=== PATIENT | male | born 1985 | race Hispanic/Latino ===

== ENCOUNTER 2017-04-11 15:39 | Emergency (ER) | payer SELFPAY ==
[2017-04-11 15:52] VITALS: BMI 24.4
[2017-04-11 16:03] VITALS: TEMP 98.7
--- NOTE | 2017-04-11 16:37 | ED PDOC ---
Arrival/HPI - General Historian: Patient - General Chief Complaint: Psychiatric Evaluation Time Seen by Provider: 04/11/17 15:43 - History of Present Illness Narrative History of Present Illness (Text): 04/11/17 16:33 31yo male with history of Bipolar bib the [facility] for psych evaluation. Per BPD, patient tried to hang himself in correction today. Patient admitted to it, states he was joking with the guards. Reports visual hallucination, described as "things crawling on a wall". Notes that he used heroine this morning. States he takes psych medications that he gets from the street. Denies HI, somatic complaint, any other complaint. (Joel,Amparo A) Past Medical History - Provider Review Nursing Documentation Reviewed: Yes - Infectious Disease Hx of Infectious Diseases: None - Tetanus Immunization Tetanus Immunization: Unknown - Past Medical History Past Medical History: No Previous - Cardiac Hx Cardiac Disorders: No Hx Hypertension: No - Pulmonary Hx Tuberculosis: No - Neurological HX Cerebrovascular Accident: No Hx Seizures: No - HEENT Hx HEENT Disorder: No - Renal Hx Renal Disorder: No - Endocrine/Metabolic Hx Endocrine Disorders: No - Hematological/Oncological Hx Blood Disorders: No Hx Cancer: No - Integumentary Hx Dermatological Disorder: No - Musculoskeletal/Rheumatological Hx Musculoskeletal Disorders: No - Gastrointestinal Hx Gastrointestinal Disorders: No - Genitourinary/Gynecological Hx Genitourinary Disorders: No Hx Sexually Transmitted Diseases: No - Psychiatric Hx Psychophysiologic Disorder: Yes Hx Bipolar Disorder: Yes Hx Depression: Yes Hx Emotional Abuse: No Hx Physical Abuse: No Hx Substance Use: Yes - Past Surgical History Past Surgical History: No Previous - Suicidal Assessment Feels Threatened In Home Enviroment: No Family/Social History - Physician Review Nursing Documentation Reviewed: Yes Family/Social History: Unknown Family HX Smoking Status: Heavy Smoker > 10 Cigarettes Daily Hx Alcohol Use: Yes Frequency of alcohol use: Daily Hx Substance Use: Yes Substance used: marijuana, percocet, xanax, heroin Hx Substance Use Treatment: No Allergies/Home Meds Allergies/Adverse Reactions: Allergies No Known Allergies Allergy (Verified 04/11/17 15:52) Home Medications: Home Meds Medication Instructions Recorded Confirmed QUEtiapine [SEROquel] 50 mg PO .AM 04/11/17 04/11/17 Quetiapine Fumarate [Seroquel] 300 mg PO HS 04/11/17 04/11/17 hydrOXYzine Pamoate [Vistaril] 50 mg PO PRN PRN 04/11/17 04/11/17 traZODone [Desyrel] 50 mg PO .AM 04/11/17 04/11/17 traZODone [Desyrel] 150 mg PO HS 04/11/17 04/11/17 Review of Systems - Physician Review All systems were reviewed & negative as marked: Yes - Review of Systems Constitutional: Normal Eyes: Normal ENT: Normal Respiratory: Normal Cardiovascular: Normal Gastrointestinal: Normal Genitourinary Male: Normal Musculoskeletal: Normal Skin: Normal Neurological: Normal Endocrine: Normal Hemo/Lymphatic: Normal Psychiatric: Suicidal Ideation Physical Exam Vital Signs Reviewed: Yes Temperature: Afebrile Blood Pressure: Normal Pulse: Regular Respiratory Rate: Normal Appearance: Positive for: Well-Appearing, Non-Toxic, Comfortable Pain Distress: None Mental Status: Positive for: Alert and Oriented X 3 - Systems Exam Head: Present: Atraumatic, Normocephalic Pupils: Present: PERRL Extroacular Muscles: Present: EOMI Conjunctiva: Present: Normal Mouth: Present: Moist Mucous Membranes Neck: Present: Normal Range of Motion Respiratory/Chest: Present: Clear to Auscultation, Good Air Exchange. No: Respiratory Distress, Accessory Muscle Use Cardiovascular: Present: Regular Rate and Rhythm, Normal S1, S2. No: Murmurs Abdomen: Present: Normal Bowel Sounds. No: Tenderness, Distention, Peritoneal Signs Back: Present: Normal Inspection Upper Extremity: Present: Normal Inspection. No: Cyanosis, Edema Lower Extremity: Present: Normal Inspection. No: Edema Neurological: Present: GCS=15, CN II-XII Intact, Speech Normal Skin: Present: Warm, Dry, Normal Color. No: Rashes Psychiatric: Present: Alert, Oriented x 3, Normal Insight, Normal Concentration. No: Normal Affect (Flat affect) Vital Signs Temp Pulse Resp BP Pulse Ox 04/11/17 23:41 77 18 116/72 99 04/11/17 21:40 70 18 113/60 96 04/11/17 19:18 74 18 119/67 98 04/11/17 15:39 98.7 F 82 12 125/70 98 Medical Decision Making ED Course and Treatment: 04/11/17 22:49 Pt medically cleared for psychiatric evaluation. (Kimberly,Guevara) - Lab Interpretations Lab Results: 04/11/17 22:00 04/11/17 22:00 Lab Results 04/11/17 22:00: Alcohol, Quantitative < 10 04/11/17 22:00: Salicylates < 1 L, Acetaminophen < 10.0 L 04/11/17 22:00: Sodium 139, Potassium 4.1, Chloride 105, Carbon Dioxide 23, Anion Gap 15, BUN 8, Creatinine 0.6, Est GFR ( Amer) > 60, Est GFR (Non- Af Amer) > 60, Random Glucose 92, Calcium 9.5, Total Bilirubin 0.5, AST 50, ALT 59 H, Alkaline Phosphatase 73, Total Protein 7.5, Albumin 3.9, Globulin 3.7, Albumin/Globulin Ratio 1.1 04/11/17 22:00: WBC 6.4, RBC 4.59, Hgb 12.8 L, Hct 38.8 L, MCV 84.5, MCH 27.9, MCHC 33.0, RDW 15.8 H, Plt Count 237, MPV 10.3, Gran % 73.5 H, Lymph % (Auto) 19.6 L, [place] % (Auto) 5.0, Eos % (Auto) 1.6, Baso % (Auto) 0.3, Gran # 4.68, Lymph # 1.3, [place] # 0.3, Eos # 0.1, Baso # 0.02 04/11/17 17:25: Urine Opiates Screen Positive H, Urine Methadone Screen Negative , Ur Barbiturates Screen Negative, Ur Phencyclidine Scrn Negative, Ur Amphetamines Screen Negative, U Benzodiazepines Scrn Positive H, U Oth Cocaine Metabols Negative, U Cannabinoids Screen Positive H 04/11/17 17:25: Urine Color Yellow, Urine Appearance Clear, Urine pH 7.0, Ur Specific [place] 1.015, Urine Protein Negative, Urine Glucose (UA) Negative, Urine Ketones Negative, Urine Blood Negative, Urine Nitrate Negative, Urine Bilirubin Negative, Urine Urobilinogen 0.2, Ur Leukocyte Esterase Negative - RAD Interpretation Radiology Orders: 04/11/17 15:56 CHEST PORTABLE [RAD] Stat Disposition/Present on Arrival - Present on Arrival Any Indicators Present on Arrival: No History of DVT/PE: No History of Uncontrolled Diabetes: No Urinary Catheter: No History of Decub. Ulcer: No History Surgical Site Infection Following: None - Disposition Have Diagnosis and Disposition been Completed?: Yes Disposition Time: 08:00 Patient Plan: Discharge - Disposition Diagnosis: Substance induced mood disorder, Suicidal behavior Disposition: HOME/ ROUTINE Condition: STABLE Referrals: PCP,NO [Primary Care Provider] - Follow up with primary
[2017-04-11 17:36] LABS: URINE BILIRUBIN NEGATIVE (NEGATIVE); URINE BLOOD NEGATIVE (NEGATIVE); URINE GLUCOSE (UA) NEGATIVE (NEGATIVE); URINE KETONE NEGATIVE (NEGATIVE); URINE LEUKOCYTE ESTERASE NEGATIVE Leu/uL (NEGATIVE); URINE PROTEIN NEGATIVE mg/dL (<30 mg/dL); URINE UROBILINOGEN 0.2 E.U./dL (<1 E.U./dL)
[2017-04-11 17:41] LABS: URINE APPEARANCE CLEAR (CLEAR); URINE COLOR YELLOW (YELLOW)
--- NOTE | 2017-04-11 17:50 | RAD ---
HISTORY: admission COMPARISON: Chest x-ray performed 04/23/14 TECHNIQUE: Chest, one view. FINDINGS: LUNGS: No focal consolidation. Please note that chest x-ray has limited sensitivity for the detection of pulmonary masses. PLEURA: No significant pleural effusion identified. No definite pneumothorax . CARDIOVASCULAR: The cardiomediastinal silhouette appears within normal limits of size. OSSEOUS STRUCTURES: No acute osseous abnormality identified. VISUALIZED UPPER ABDOMEN: Unremarkable. OTHER FINDINGS: None. IMPRESSION: No focal consolidation, significant pleural effusion, or definite pneumothorax identified.
[2017-04-11 19:18] VITALS: RESP 18
[2017-04-11 22:02] LABS: ADD MANUAL DIFF? NO
[2017-04-11 22:07] LABS: BASO # 0.02 K/mm3 (0.0-2.0); BASO % 0.3 % (0.0-3.0); EOS # 0.1 (0.0-0.7); EOS % 1.6 % (1.5-5.0); GRAN # 4.68 (1.4-6.5); GRAN % 73.5 % (50.0-68.0); HEMATOCRIT 38.8 % (42.0-52.0); LYMPH # 1.3 (1.2-3.4); LYMPH % 19.6 % (22.0-35.0); MEAN CELL VOLUME 84.5 fL (80.0-105.0); MEAN CORPUSCULAR HEMOGLOBIN 27.9 pg (25.0-35.0); MEAN PLATELET VOLUME 10.3 fl (7.0-11.0); MONO # 0.3 (0.1-0.6); PLATELET COUNT 237 10^3/uL (120.0-450.0); RED CELL DISTRIBUTION WIDTH 15.8 % (11.5-14.5); WHITE BLOOD COUNT 6.4 10^3/ul (4.5-11.0)
[2017-04-11 22:17] LABS: ALB/GLOB RATIO 1.1 (1.1-1.8); ALKALINE PHOSPHATASE 73 U/L (38-133); ALT/SGPT 59 U/L (7-56); AST/SGOT 50 U/L (15-59); BILIRUBIN,TOTAL 0.5 mg/dL (0.2-1.3); BLOOD UREA NITROGEN 8 mg/dL (7-21); CALCIUM 9.5 mg/dL (8.4-10.5); CARBON DIOXIDE 23 mmol/L (21-33); CHLORIDE 105 mmol/L (95-110); GFR AFRICAN-AMERICAN > 60; GLUCOSE,RANDOM 92 mg/dL (70-110); POTASSIUM 4.1 mmol/L (3.6-5.0); SODIUM 139 mmol/L (132-148); TOTAL PROTEIN 7.5 g/dL (5.8-8.3)
--- NOTE | 2017-04-11 22:17 | CARD ---
APPROVED REPORT EKG Measurement Heart [id number] <Conclusion> Normal sinus rhythm Normal ECG
[2017-04-11 23:41] VITALS: BP 116/72; PULSE 77; O2SAT 99
== END 2017-04-12 22:45 | disposition home or self-care (01) ==
LOC: ED 15:39
DX: F19.94 Other psychoactive substance use, unspecified with psychoactive substance-induced mood disorder (principal); R45.851 Suicidal ideations
CPT/HCPCS: 71010; 80053; 81003; 85025; 90791; 93005; 99284; G0480

== ENCOUNTER 2017-10-17 23:17 | Emergency (ER) | payer MEDICAID ==
[2017-10-17 23:17] VITALS: BMI 24.4
[2017-10-17 23:28] VITALS: BP 119/67; PULSE 76; RESP 24; TEMP 98.6; O2SAT 97
--- NOTE | 2017-10-17 23:34 | ED PDOC ---
Arrival/HPI <Rukhsana Arteaga - Last Filed: 10/18/17 01:35> <Karan Verdugo - Last Filed: 10/18/17 04:59> - General Chief Complaint: Substance Abuse - History of Present Illness Narrative History of Present Illness (Text): 31 year old male with PMHx BiPolar disorder, and substance abuse presents to the ED status post syncopal episode with fall. Mother was at bedside. Patient stated he got dizzy and then fell, he does not remember if he hit his head. Per mother, patient did hit his head. He stated that he did a 30mg Oxycode along with his prescribed methadone. Interview was halted because patient stated that he wished to go home. 10/17/17 23:34 (Rukhsana Arteaga) Past Medical History - Provider Review Nursing Documentation Reviewed: Yes - Infectious Disease Hx of Infectious Diseases: None - Tetanus Immunization Tetanus Immunization: Unknown - Past Medical History Past Medical History: No Previous - Cardiac Hx Cardiac Disorders: No Hx Hypertension: No - Pulmonary Hx Tuberculosis: No - Neurological HX Cerebrovascular Accident: No Hx Seizures: No - HEENT Hx HEENT Disorder: No - Renal Hx Renal Disorder: No - Endocrine/Metabolic Hx Endocrine Disorders: No - Hematological/Oncological Hx Blood Disorders: No Hx Cancer: No - Integumentary Hx Dermatological Disorder: No - Musculoskeletal/Rheumatological Hx Musculoskeletal Disorders: No - Gastrointestinal Hx Gastrointestinal Disorders: No - Genitourinary/Gynecological Hx Genitourinary Disorders: No Hx Sexually Transmitted Diseases: No - Psychiatric Hx Psychophysiologic Disorder: Yes Hx Bipolar Disorder: Yes Hx Depression: Yes Hx Emotional Abuse: No Hx Physical Abuse: No Hx Substance Use: Yes - Past Surgical History Past Surgical History: No Previous - Anesthesia Hx Anesthesia: No Hx Anesthesia Reactions: No Hx Malignant Hyperthermia: No - Suicidal Assessment Feels Threatened In Home Enviroment: No <Rukhsana Arteaga - Last Filed: 10/18/17 01:35> Family/Social History - Physician Review Nursing Documentation Reviewed: Yes Family/Social History: Unknown Family HX Smoking Status: Heavy Smoker > 10 Cigarettes Daily Hx Alcohol Use: Yes Hx Substance Use: Yes Substance used: marijuana, percocet, xanax, heroin Hx Substance Use Treatment: No <Rukhsana Arteaga - Last Filed: 10/18/17 01:35> Allergies/Home Meds <Rukhsana Arteaga - Last Filed: 10/18/17 01:35> <Karan Verdugo - Last Filed: 10/18/17 04:59> Allergies/Adverse Reactions: Allergies No Known Allergies Allergy (Verified 04/11/17 15:52) Home Medications: Home Meds Medication Instructions Recorded Confirmed QUEtiapine [SEROquel] 50 mg PO .AM 04/11/17 10/17/17 Quetiapine Fumarate [Seroquel] 300 mg PO HS 04/11/17 10/17/17 hydrOXYzine Pamoate [Vistaril] 50 mg PO PRN PRN 04/11/17 10/17/17 traZODone [Desyrel] 50 mg PO .AM 04/11/17 10/17/17 traZODone [Desyrel] 150 mg PO HS 04/11/17 10/17/17 Review of Systems - Review of Systems Systems not reviewed;Unavailable: Other (N/A. Patient stopped interview before ROS and stated that he would like to go home.) <Rukhsana Arteaga - Last Filed: 10/18/17 01:35> Physical Exam Vital Signs Reviewed: Yes <Rukhsana Arteaga - Last Filed: 10/18/17 01:35> <Karan Verdugo - Last Filed: 10/18/17 04:59> - Physical Exam Narrative Physical Exam (Text): N/A. Patient refused physical exam and stated he would like to go home. 10/17/17 23:52 (Rukhsana Arteaga) Vital Signs Temp Pulse Resp BP Pulse Ox 10/17/17 23:27 98.6 F 76 24 119/67 97 Medical Decision Making <Rukhsana Arteaga - Last Filed: 10/18/17 01:35> <Karan Verdugo - Last Filed: 10/18/17 04:59> ED Course and Treatment: Syncopal episode likely 2/2 to drug intoxication This patient is choosing to leave against medical advice. I have personally explained to the patient that choosing to do so may result in permanent bodily harm or . I have discussed at great length that without further evaluation and monitoring there may be unforeseen circumstances and/or deterioration causing permanent bodily harm or as a result of their choice. The patient is alert, oriented, and shows the mental capacity to make clear decisions regarding the patients health care at this time. The patient continues to wish to leave against medical advice. In light of the patients decision to leave AMA, patient is aware of the importance of following up as instructed. The patient has been advised that they should return to the ED immediately if they change their mind at any time, or if their condition begins to change or worsen in any way. 10/17/17 23:53 (Rukhsana Arteaga) Impression: Pt seen and evaluated with medical staff services manager. Pt, whose past medical history includes bipolar disorder and substance abuse, presented s/p syncope tonight. Pt admits to taking Oxycodone 30mg with his Methadone tonight. Aware and agree with HPI, clinical findings, plan, and management. Plan: -- Reassess and disposition Pt refused a physical exam, lab work, or any further evaluation. Pt refused any further questioning. Pt wants to go home. Pt is choosing to leave against medical advice. (Karan Verdugo) - PA / TOOL DESIGN ENGINEER / Resident Statement / has reviewed & agrees with the documentation as recorded. / has examined the patient and agrees with the treatment plan. <Karan Verdugo - Last Filed: 10/18/17 04:59> Disposition/Present on Arrival - Present on Arrival Any Indicators Present on Arrival: No History of DVT/PE: No History of Uncontrolled Diabetes: No Urinary Catheter: No History of Decub. Ulcer: No History Surgical Site Infection Following: None - Disposition Have Diagnosis and Disposition been Completed?: No Disposition Time: 23:54 <Rukhsana Arteaga - Last Filed: 10/18/17 01:35> - Present on Arrival Any Indicators Present on Arrival: No - Disposition Have Diagnosis and Disposition been Completed?: Yes <Karan Verdugo - Last Filed: 10/18/17 04:59> - Disposition Diagnosis: Substance abuse Disposition: AGAINST MEDICAL ADVICE Condition: UNKNOWN Forms: [employer] (Indonesian)
== END 2017-10-18 01:36 | disposition left against medical advice (07) ==
LOC: ED 23:17
DX: F19.10 Other psychoactive substance abuse, uncomplicated (principal)

== ENCOUNTER 2018-03-24 18:17 | Emergency (ER) | payer MEDICAID ==
[2018-03-24 18:18] VITALS: BMI 24.4
[2018-03-24 18:30] VITALS: BP 137/85; PULSE 95; RESP 18; TEMP 98; O2SAT 99
--- NOTE | 2018-03-24 18:43 | ED PDOC ---
Arrival/HPI - General Chief Complaint: Anxiety Time Seen by Provider: 03/24/18 18:29 Historian: Patient - History of Present Illness Narrative History of Present Illness (Text): 03/24/18 18:46 32 year old male presents to the Emergency department complaining of palpitations and dizziness that began just prior to being registered. Patient is accompanying his brother who is a patient in the Emergency department at this time. Patient states his current symptoms are likely secondary from anxiety regarding his brother's case. Patient states his symptoms are improving. Patient denies any fever, chills, chest pain, shortness of breath, nausea, vomiting, diarrhea, urinary symptoms, back pain, neck pain, headache, or any other complaints. Time/Duration: Prior to Arrival Symptom Onset: Sudden Symptom Course: Improving Context: Standing Past Medical History - Provider Review Nursing Documentation Reviewed: Yes - Infectious Disease Hx of Infectious Diseases: None - Tetanus Immunization Tetanus Immunization: Unknown - Past Medical History Past Medical History: No Previous - Cardiac Hx Cardiac Disorders: No Hx Hypertension: No - Pulmonary Hx Respiratory Disorders: No Hx Tuberculosis: No - Neurological HX Cerebrovascular Accident: No Hx Seizures: No - HEENT Hx HEENT Disorder: No - Renal Hx Renal Disorder: No - Endocrine/Metabolic Hx Endocrine Disorders: No - Hematological/Oncological Hx Blood Disorders: No Hx Cancer: No - Integumentary Hx Dermatological Disorder: No - Musculoskeletal/Rheumatological Hx Musculoskeletal Disorders: No - Gastrointestinal Hx Gastrointestinal Disorders: No - Genitourinary/Gynecological Hx Genitourinary Disorders: No Hx Sexually Transmitted Diseases: No - Psychiatric Hx Psychophysiologic Disorder: Yes Hx Bipolar Disorder: Yes Hx Depression: Yes Hx Emotional Abuse: No Hx Physical Abuse: No Hx Substance Use: Yes - Past Surgical History Past Surgical History: No Previous - Anesthesia Hx Anesthesia: No Hx Anesthesia Reactions: No Hx Malignant Hyperthermia: No - Suicidal Assessment Feels Threatened In Home Enviroment: No Family/Social History - Physician Review Nursing Documentation Reviewed: Yes Family/Social History: Unknown Family HX Smoking Status: Heavy Smoker > 10 Cigarettes Daily Hx Alcohol Use: Yes Hx Substance Use: Yes Substance used: marijuana, percocet, xanax, heroin Hx Substance Use Treatment: No Allergies/Home Meds Allergies/Adverse Reactions: Allergies No Known Allergies Allergy (Verified 04/11/17 15:52) Home Medications: Home Meds Medication Instructions Recorded Confirmed ALPRAZolam [Xanax] 1 mg PO BID 03/24/18 03/24/18 Doxepin [Doxepin HCl] 25 mg PO HS 03/24/18 03/24/18 Review of Systems - Physician Review All systems were reviewed & negative as marked: Yes - Review of Systems Constitutional: absent: Fevers, Night Sweats Respiratory: absent: SOB Cardiovascular: Palpitations. absent: Chest Pain Gastrointestinal: absent: Nausea, Vomiting Genitourinary Male: absent: Dysuria Musculoskeletal: absent: Back Pain, Neck Pain Neurological: Dizziness. absent: Headache Physical Exam Vital Signs Reviewed: Yes Vital Signs Temp Pulse Resp BP Pulse Ox 03/24/18 18:18 98 F 95 H 18 137/85 99 Temperature: Afebrile Blood Pressure: Normal Pulse: Tachycardic Respiratory Rate: Normal Appearance: Positive for: Well-Appearing, Non-Toxic, Comfortable Pain Distress: None Mental Status: Positive for: Alert and Oriented X 3 - Systems Exam Head: Present: Atraumatic, Normocephalic Pupils: Present: PERRL Extroacular Muscles: Present: EOMI Conjunctiva: Present: Normal Mouth: Present: Moist Mucous Membranes Neck: Present: Normal Range of Motion Respiratory/Chest: Present: Clear to Auscultation, Good Air Exchange. No: Respiratory Distress, Accessory Muscle Use Cardiovascular: Present: Regular Rate and Rhythm, Normal S1, S2. No: Murmurs Abdomen: No: Tenderness, Distention, Peritoneal Signs Back: Present: Normal Inspection Upper Extremity: Present: Normal Inspection. No: Cyanosis, Edema Lower Extremity: Present: Normal Inspection. No: Edema Neurological: Present: GCS=15, CN II-XII Intact, Speech Normal Skin: Present: Warm, Dry, Normal Color. No: Rashes Psychiatric: Present: Alert, Oriented x 3, Normal Insight, Normal Concentration Medical Decision Making ED Course and Treatment: 03/24/18 18:50 Impression: 32 year old male presents to the Emergency department complaining of palpitations and dizziness, secondary to anxiety. Plan: -- EKG -- Reassess and disposition Progress Notes: 03/24/18 18:50 Patient was relieved to find out that his EKG was normal. Patient reports his symptoms are almost entirely resolved. 03/24/18 18:52 Leaving Against Medical Advice (AMA): The patient is choosing to leave against medical advice. I have personally explained to the patient that choosing to do so may result in permanent bodily harm or . I have discussed at great length that without further evaluation and monitoring there may be unforeseen circumstances and/or deterioration causing permanent bodily harm or as a result of their choice. The patient is alert, oriented, and shows the mental capacity to make clear decisions regarding the patients health care at this time. The patient continues to wish to leave against medical advice. In light of the patients decision to leave against medical advice, follow-up has been arranged and the patient is aware of the importance to following up as instructed. The patient has been advised that they should return to the emergency room immediately if they change their mind at any time, or if their condition begins to change or worsen in any way. - Scribe Statement The provider has reviewed the documentation as recorded by the Lily Chan Provider Scribe Attestation: All medical record entries made by the Scribe were at my direction and personally dictated by me. I have reviewed the chart and agree that the record accurately reflects my personal performance of the history, physical exam, medical decision making, and the department course for this patient. I have also personally directed, reviewed, and agree with the discharge instructions and disposition. Disposition/Present on Arrival - Present on Arrival Any Indicators Present on Arrival: No History of DVT/PE: No History of Uncontrolled Diabetes: No Urinary Catheter: No History of Decub. Ulcer: No History Surgical Site Infection Following: None - Disposition Have Diagnosis and Disposition been Completed?: Yes Diagnosis: Anxiety, Chest pain Disposition: AGAINST MEDICAL ADVICE Disposition Time: 18:43 Patient Plan: Other (AMA) Condition: GOOD Discharge Instructions (ExitCare): Chest Pain (ED) Additional Instructions: RETURN TO US IF YOU CHANGE YOUR MIND Referrals: BrandBeausherman Santana, [Primary Care Provider] - Follow up with primary Forms: [employer] (Polish)
== END 2018-03-24 18:50 | disposition left against medical advice (07) ==
LOC: ED 18:17
DX: F41.9 Anxiety disorder, unspecified (principal); R07.9 Chest pain, unspecified; F17.210 Nicotine dependence, cigarettes, uncomplicated

== ENCOUNTER 2018-03-30 18:16 | Emergency (ER) | payer MEDICAID ==
[2018-03-30 18:17] VITALS: BMI 24.4
[2018-03-30 18:25] VITALS: BP 113/68; RESP 18; TEMP 98
[2018-03-30 18:26] VITALS: PULSE 90; O2SAT 95
--- NOTE | 2018-03-30 18:52 | ED PDOC ---
Arrival/HPI - General Chief Complaint: Anxiety Time Seen by Provider: 03/30/18 18:33 Historian: Patient - History of Present Illness Narrative History of Present Illness (Text): 03/30/18 18:49 31 year old male with PMHx BiPolar disorder, and substance abuse presents to the ED c/o anxiety x [facility]IST[facility] Past Medical History - Infectious Disease Hx of Infectious Diseases: None - Tetanus Immunization Tetanus Immunization: Unknown - Past Medical History Past Medical History: No Previous - Cardiac Hx Cardiac Disorders: No - Pulmonary Hx Respiratory Disorders: No - Neurological Hx Neurological Disorder: No - HEENT Hx HEENT Disorder: No - Renal Hx Renal Disorder: No - Endocrine/Metabolic Hx Endocrine Disorders: No - Hematological/Oncological Hx Blood Disorders: No - Integumentary Hx Dermatological Disorder: No - Musculoskeletal/Rheumatological Hx Musculoskeletal Disorders: No - Gastrointestinal Hx Gastrointestinal Disorders: No - Genitourinary/Gynecological Hx Genitourinary Disorders: No - Psychiatric Hx Psychophysiologic Disorder: Yes Hx Bipolar Disorder: Yes Hx Depression: Yes Hx Substance Use: Yes - Past Surgical History Past Surgical History: No Previous - Anesthesia Hx Anesthesia: No Hx Anesthesia Reactions: No Hx Malignant Hyperthermia: No - Suicidal Assessment Feels Threatened In Home Enviroment: No Family/Social History Smoking Status: Heavy Smoker > 10 Cigarettes Daily Hx Alcohol Use: Yes Hx Substance Use: Yes Substance used: marijuana, percocet, xanax, heroin Hx Substance Use Treatment: No Allergies/Home Meds Allergies/Adverse Reactions: Allergies No Known Allergies Allergy (Verified 03/30/18 18:25) Home Medications: Home Meds Medication Instructions Recorded Confirmed No Known Home Med 03/30/18 03/30/18 Physical Exam Vital Signs Temp Pulse Resp BP Pulse Ox 03/30/18 18:25 98 F 90 18 113/68 95 03/30/18 18:20 98 F 102 H 18 113/68 97 Medical Decision Making ED Course and Treatment: 03/30/18 18:50 Discharge Instructions: Re-evaluation. Patient feels better. Discussed results and plan with patient who expresses understanding. All questions answered and there is agreement with the plan to discharge home with instructions. Patient stable for discharge. Return if symptoms persist or worsen. Patient stated he feels better. He denies SI, or HI. Denies illegal drug use or alcohol use today. Re-evaluation Time: 18:50 Reassessment Condition: Re-examined, Improved Disposition/Present on Arrival - Present on Arrival Any Indicators Present on Arrival: No History of DVT/PE: No History of Uncontrolled Diabetes: No Urinary Catheter: No History of Decub. Ulcer: No History Surgical Site Infection Following: None - Disposition Have Diagnosis and Disposition been Completed?: Yes Diagnosis: Anxiety Disposition: HOME/ ROUTINE Disposition Time: 18:50 Patient Plan: Discharge Condition: GOOD Discharge Instructions (ExitCare): Anxiety, Adult (DC) Additional Instructions: Call private doctor for follow up visit in 1-2 days. Call mental health clinic for revaluation of anxiety. Return to emergency if symptoms worsen. Referrals: [facility] [Outside] - Follow up with primary [facility] [[facility]] - Follow up with primary
== END 2018-03-30 19:11 | disposition home or self-care (01) ==
LOC: ED 18:16
DX: F41.9 Anxiety disorder, unspecified (principal)

== ENCOUNTER 2018-04-01 20:17 | Emergency (ER) | payer MEDICAID ==
[2018-04-01 20:44] VITALS: BP 129/77; PULSE 90; RESP 18; TEMP 98.6; O2SAT 97; BMI 25.7
--- NOTE | 2018-04-01 21:29 | ED PDOC ---
Arrival/HPI - General Chief Complaint: Medical Clearance Time Seen by Provider: 04/01/18 20:25 Historian: Patient - History of Present Illness Narrative History of Present Illness (Text): 04/01/18 21:24 Patient is a 32 year old male whose past medical history includes bipolar disorder, substance abuse, and anxiety, who presents to the Emergency department complaining of a syncopal episode, which occurred tonight while waiting in the Emergency department with his brother. He states experiencing a previous episode the day prior. He states that he hit his head tonight secondary to his syncopal event. Patient denies any drug use other than his prescribed medication. He denies any nausea, vomiting, neck pain, cp, sob, or any other complaints at this time. Time/Duration: Other (While waiting in Emergency department) Context: Sitting Past Medical History - Provider Review Nursing Documentation Reviewed: Yes - Infectious Disease Hx of Infectious Diseases: None - Tetanus Immunization Tetanus Immunization: Unknown - Past Medical History Past Medical History: No Previous - Cardiac Hx Cardiac Disorders: No - Pulmonary Hx Respiratory Disorders: No - Neurological Hx Neurological Disorder: No - HEENT Hx HEENT Disorder: No - Renal Hx Renal Disorder: No - Endocrine/Metabolic Hx Endocrine Disorders: No - Hematological/Oncological Hx Blood Disorders: No - Integumentary Hx Dermatological Disorder: No - Musculoskeletal/Rheumatological Hx Musculoskeletal Disorders: No - Gastrointestinal Hx Gastrointestinal Disorders: No - Genitourinary/Gynecological Hx Genitourinary Disorders: No - Psychiatric Hx Psychophysiologic Disorder: Yes Hx Bipolar Disorder: Yes Hx Depression: Yes Hx Substance Use: Yes - Past Surgical History Past Surgical History: No Previous - Anesthesia Hx Anesthesia: No Hx Anesthesia Reactions: No Hx Malignant Hyperthermia: No - Suicidal Assessment Feels Threatened In Home Enviroment: No Family/Social History - Physician Review Nursing Documentation Reviewed: Yes Family/Social History: No Known Family HX Smoking Status: Heavy Smoker > 10 Cigarettes Daily Hx Alcohol Use: Yes Hx Substance Use: Yes Substance used: marijuana, percocet, xanax, heroin Hx Substance Use Treatment: No Allergies/Home Meds Allergies/Adverse Reactions: Allergies No Known Allergies Allergy (Verified 04/01/18 20:41) Home Medications: Home Meds Medication Instructions Recorded Confirmed Alprazolam [Xanax] 2 mg PO DAILY 04/01/18 04/01/18 Review of Systems - Physician Review All systems were reviewed & negative as marked: Yes - Review of Systems Respiratory: absent: SOB Cardiovascular: absent: Chest Pain Gastrointestinal: absent: Nausea, Vomiting Musculoskeletal: absent: Neck Pain Physical Exam Vital Signs Reviewed: Yes Vital Signs Temp Pulse Resp BP Pulse Ox 04/01/18 20:40 98.6 F 90 18 129/77 97 Temperature: Afebrile Blood Pressure: Normal Pulse: Regular Respiratory Rate: Normal Appearance: Positive for: Well-Appearing Mental Status: Positive for: Alert and Oriented X 3 - Systems Exam Head: Present: Atraumatic, Normocephalic Pupils: Present: PERRL Extroacular Muscles: Present: EOMI Conjunctiva: Present: Normal Ears: Present: NORMAL TM Mouth: Present: Moist Mucous Membranes Neck: Present: Normal Range of Motion, Other (Neck is supple) Respiratory/Chest: Present: Clear to Auscultation, Good Air Exchange. No: Respiratory Distress, Accessory Muscle Use Cardiovascular: Present: Regular Rate and Rhythm, Normal S1, S2. No: Murmurs Abdomen: No: Tenderness, Distention, Peritoneal Signs Back: Present: Normal Inspection. No: CVA Tenderness, Paraspinal Tenderness Upper Extremity: Present: Normal Inspection. No: Cyanosis, Edema Lower Extremity: Present: Normal Inspection. No: Edema Neurological: Present: GCS=15, CN II-XII Intact, Speech Normal, Motor Func Grossly Intact, Normal Sensory Function, Normal Cerebellar Funct Skin: Present: Warm, Dry, Normal Color. No: Rashes Psychiatric: Present: Alert, Oriented x 3, Normal Insight, Normal Concentration Medical Decision Making ED Course and Treatment: 04/01/18 21:45 Impression: Patient is a 32 year old male with episodes of syncope. Differential Diagnosis included but are not limited to: cardiac arrhythmia vs. vasovagal syncope vs. cerebral hemorrhage Plan: --head CT w/o contrast --labs --Chest X-ray -- Reassess and disposition Prior Visits: Notes and results from previous visits were reviewed. Patient was last seen in the emergency department on 03/30/18 complaining of anxiety and was discharged. Progress Notes: 04/01/18 22:21 Patient is refusing blood work and completion of his Emergency room evaluation, stating that he feels fine and wants to leave. He understands the risks of leaving including the possibility of . Patient is signing out against medical advise. Leaving Against Medical Advice (AMA): The patient is choosing to leave against medical advice. I have personally explained to the patient that choosing to do so may result in permanent bodily harm or . I have discussed at great length that without further evaluation and monitoring there may be unforeseen circumstances and/or deterioration causing permanent bodily harm or as a result of their choice. The patient is alert, oriented, and shows the mental capacity to make clear decisions regarding the patients health care at this time. The patient continues to wish to leave against medical advice. In light of the patients decision to leave against medical advice, follow-up has been arranged and the patient is aware of the importance to following up as instructed. The patient has been advised that they should return to the emergency room immediately if they change their mind at any time, or if their condition begins to change or worsen in any way. - RAD Interpretation Radiology Orders: 04/01/18 21:02 HEAD W/O CONTRAST [CT] Stat CHEST ONE VIEW [RAD] Stat - Scribe Statement The provider has reviewed the documentation as recorded by the Scribe Vaughn Wisdom Provider Scribe Attestation: All medical record entries made by the Scribe were at my direction and personally dictated by me. I have reviewed the chart and agree that the record accurately reflects my personal performance of the history, physical exam, medical decision making, and the department course for this patient. I have also personally directed, reviewed, and agree with the discharge instructions and disposition. Disposition/Present on Arrival - Present on Arrival Any Indicators Present on Arrival: No History of DVT/PE: No History of Uncontrolled Diabetes: No Urinary Catheter: No History of Decub. Ulcer: No History Surgical Site Infection Following: None - Disposition Have Diagnosis and Disposition been Completed?: Yes Diagnosis: Syncope Disposition: AGAINST MEDICAL ADVICE Disposition Time: 22:40 Condition: STABLE Discharge Instructions (ExitCare): Syncope (ED) Referrals: Geronimo Thornton MD [Primary Care Provider] - Follow up with primary Forms: [employer] (Indonesian)
--- NOTE | 2018-04-02 08:17 | RAD ---
PROCEDURE: CHEST RADIOGRAPH, 1 VIEW HISTORY: fever COMPARISON: Comparison chest 04/09/2017 FINDINGS: LUNGS: Clear. PLEURA: No pneumothorax or pleural fluid seen. CARDIOVASCULAR: Normal. OSSEOUS STRUCTURES: No significant abnormalities. VISUALIZED UPPER ABDOMEN: Normal. OTHER FINDINGS: None. IMPRESSION: No active disease.
--- NOTE | 2018-04-02 09:32 | CT ---
PROCEDURE: CT scan brain dated 04/01/2018 HISTORY: Syncope COMPARISON: No prior study available for comparison TECHNIQUE: Contiguous helical/ transaxial computed tomography images were obtained through the head/brain without intravenous contrast. Radiation dose: Total exam DLP = 992.47 mGy-cm. This CT exam was performed using one or more of the following dose reduction techniques: Automated exposure control, adjustment of the mA and/or kV according to patient size, and/or use of iterative reconstruction technique. . FINDINGS: HEMORRHAGE: No acute parenchymal, subarachnoid or extra-axial BRAIN: No mass effect or edema. No atrophy or chronic microvascular ischemic changes. VENTRICLES: No obstructive the hydrocephalus. In. Minor asymmetry of the lateral ventricles right-sided which is the slightly larger than the left felt to represent an anatomic variation. CALVARIUM: Calvarium appears intact. PARANASAL SINUSES: Unremarkable as visualized. No significant inflammatory changes. MASTOID AIR CELLS: Unremarkable as visualized. No inflammatory changes. OTHER FINDINGS: Patient appears nearly completely edentulous IMPRESSION: No acute intracranial hemorrhage.
== END 2018-04-01 22:55 | disposition left against medical advice (07) ==
LOC: ED 20:17
DX: R55 Syncope and collapse (principal)

== ENCOUNTER 2018-04-21 20:58 | Observation (INO) | payer MEDICAID ==
[2018-04-21 21:04] VITALS: BMI 23.7
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
[2018-04-21 21:54] LABS: HEMOGLOBIN 13.6 g/dL (14.0-18.0); MEAN CELL VOLUME 84.2 fl (80.0-105.0); MEAN CORPUSCULAR HGB CONC 33.3 g/dl (31.0-37.0); MEAN PLATELET VOLUME 10.5 fl (7.0-11.0); RBC 4.86 10^6/uL (3.5-6.1); RED CELL DISTRIBUTION WIDTH 14.5 % (11.5-14.5); WHITE BLOOD COUNT 8.5 10^3/ul (4.5-11.0)
[2018-04-21 22:00] LABS: ALB/GLOB RATIO 1.4 (1.1-1.8); ALBUMIN 4.6 g/dL (3.0-4.8); ALT/SGPT 26 U/L (7-56); AST/SGOT 39 U/L (17-59); BLOOD UREA NITROGEN 10 mg/dL (7-21); CALCIUM 9.6 mg/dL (8.4-10.5); GFR AFRICAN-AMERICAN > 60; GFR NON-AFRICAN AMERICAN > 60
[2018-04-21 22:12] LABS: TROPONIN I < 0.01 ng/mL
[2018-04-21 22:27] LABS: BARBITURATES, UR NEGATIVE (NEGATIVE); BENZODIAZEPINES, UR POSITIVE (NEGATIVE); OPIATES, UR POSITIVE (NEGATIVE); PHENCYCLIDINE, UR NEGATIVE (NEGATIVE)
--- NOTE | 2018-04-21 23:00 | CT ---
EXAM: CT Head Without Intravenous Contrast CLINICAL HISTORY: 32 years old, male; Signs and symptoms; Other: Seizure TECHNIQUE: Axial computed tomography images of the head/brain without intravenous contrast. All CT scans at this facility use one or more dose reduction techniques, viz.: automated exposure control; ma/kV adjustment per patient size (including targeted exams where dose is matched to indication; i.e. head); or iterative reconstruction technique. Coronal and sagittal reformatted images were created and reviewed. COMPARISON: CT - HEAD W/O CONTRAST 2018-04-01 21:14 FINDINGS: Brain: No intracranial hemorrhage. No mass. No definite edema. Ventricles: No hydrocephalus. Bones/joints: No acute fracture. Soft tissues: Unremarkable. Sinuses: Scattered minimal mucosal thickening of ethmoid sinuses. Mild focal mucosal thickening/retention cyst of RIGHT maxillary sinus. Mastoid air cells: No mastoid effusion. Orbits: Unremarkable as visualized. IMPRESSION: 1. No definite acute intracranial abnormality. 2. Incidental/non-acute findings are described above.
[2018-04-21] MEDS ORDERED: Potassium Chloride 20 mEq ER Tab PO STA (23:56)
--- NOTE | 2018-04-22 00:44 | CP.PCM.HP ---
History of Present Illness - History of Present Illness History of Present Illness: Mr. Marcus is a 32 year old male with a past medical history significant for Bipolar Disorder, Anxiety, and polysubstance abuse who presents with new onset seizure that happened this morning when he awoke from sleep. Patient reports that he woke up this morning and felt like he wanted to scream for help but could not. The next thing the patient remembers was his mother standing over him. The mother describes the incident as the patient justen his RUE only and had his eyes rolled to the back of his head. This lasted for approximately two minutes. Afterwards the patient denies any period of confusion, tongue biting, or loss of bowel/bladder function but does endorse that he felt dizzy all day. When this dizziness did not resolve several hours later, the patient decided that he wanted to be evaluated further. Of note, patient did report that he "might have" had something similar to this in the past but could not remember exactly what had happened but denied any further neurological workup at that time. He denies any fevers, chills, photophobia, headache, changes in his vision, dysphagia, chest pain, palpitations, SOB, cough, wheezing, abdominal pain, N/V/D/C, changes in urine output, skin lesions, or any numbness/ tingling/weakness of any extremity. 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; Lives at home with parents in [place] Allergies: NKDA Home Medications: As per MAR Present on Admission - Present on Admission Any Indicators Present on Admission: No Review of Systems - Review of Systems Review of Systems: As stated in HPI, otherwise negative Past Patient History - Infectious Disease Hx of Infectious Diseases: None - Tetanus Immunizations Tetanus Immunization: Unknown - Past Social History Smoking Status: Heavy Smoker > 10 Cigarettes Daily - CARDIAC Other/Comment: reports he had prolonged QT - PULMONARY Hx Respiratory Disorders: No - NEUROLOGICAL Hx Neurological Disorder: No - HEENT Hx HEENT Problems: No - RENAL Hx Chronic Kidney Disease: No - ENDOCRINE/METABOLIC Hx Endocrine Disorders: No - HEMATOLOGICAL/ONCOLOGICAL Hx Blood Disorders: No - INTEGUMENTARY Hx Dermatological Problems: No - MUSCULOSKELETAL/RHEUMATOLOGICAL Hx Musculoskeletal Disorders: No - GASTROINTESTINAL Hx Gastrointestinal Disorders: No - GENITOURINARY/GYNECOLOGICAL Hx Genitourinary Disorders: No - PSYCHIATRIC Hx Psychophysiologic Disorder: Yes Hx Bipolar Disorder: Yes Hx Depression: Yes Hx Substance Use: Yes Other/Comment: substance abuse - SURGICAL HISTORY Hx Surgeries: No - ANESTHESIA Hx Anesthesia: No Hx Anesthesia Reactions: No Hx Malignant Hyperthermia: No Meds Allergies/Adverse Reactions: Allergies Allergy/AdvReac Type Severity Reaction Status Date / Time No Known Allergies Allergy Verified 04/01/18 20:41 Physical Exam - Constitutional Appears: Non-toxic, No Acute Distress - Head Exam Head Exam: ATRAUMATIC, NORMOCEPHALIC - Eye Exam Eye Exam: EOMI, Normal appearance, PERRL. absent: Conjunctival injection, Nystagmus, Periorbital swelling, Periorbital tenderness, Scleral icterus Pupil Exam: NORMAL ACCOMODATION, PERRL. absent: Fixed, Irregular, Miosis, Mydriatic, Unequal - ENT Exam ENT Exam: Mucous Membranes Moist, Normal Exam, Normal External Ear Exam - Neck Exam Neck exam: Positive for: Full Rom, Normal Inspection. Negative for: Lymphadenopathy, Meningismus, Tenderness, Thyromegaly - Respiratory Exam Respiratory Exam: Clear to Auscultation Bilateral, NORMAL BREATHING PATTERN. absent: Accessory Muscle Use, Chest Wall Tenderness, Decreased Breath Sounds, Prolonged Expiratory Phase, Rales, Rhonchi, Wheezes, Respiratory Distress, Stridor - Cardiovascular Exam Cardiovascular Exam: REGULAR RHYTHM, RRR, +S1, +S2. absent: Bradycardia, Tachycardia, Clicks, Diastolic murmur, Gallop, Irregular Rhythm, JVD, Rubs, +S4 , Systolic Murmur - GI/Abdominal Exam GI & Abdominal Exam: Normal Bowel Sounds, Soft. absent: Bruit, Diminished Bowel Sounds, Distended, Firm, Guarding, Hernia, Hyperactive Bowel Sounds, Hypoactive Bowel Sounds, Mass, Organomegaly, Pulsatile Mass, Rebound, Rigid, Tenderness - Extremities Exam Extremities exam: Positive for: full ROM, normal capillary refill, normal inspection, pedal pulses present. Negative for: calf tenderness, joint swelling , pedal edema, tenderness - Back Exam Back exam: FULL ROM, NORMAL INSPECTION. absent: CVA tenderness (L), CVA tenderness (R), muscle spasm, paraspinal tenderness, rash noted, tenderness, vertebral tenderness - Neurological Exam Neurological exam: Alert, CN II-XII Intact, Normal Gait, Oriented x3 - Psychiatric Exam Psychiatric exam: Normal Affect, Normal Mood - Skin Skin Exam: Dry, Intact, Normal Color, Warm Results - Vital Signs Recent Vital Signs: Last Vital Signs Temp 97.3 F L 04/21/18 23:13 Pulse 76 04/21/18 23:13 Resp 18 04/21/18 23:13 BP 126/68 04/21/18 23:13 Pulse Ox 100 04/21/18 23:13 - Labs Result Diagrams: 04/21/18 21:40 04/21/18 21:40 Assessment & Plan - Assessment and Plan (Free Text) Assessment: 32 year old male with a past medical history significant for bipolar disorder, anxiety, and polysubstance abuse who presents with new onset seizure that happened this morning when he awoke from sleep. Plan: 1. New Onset Seizure Disorder -CT Head shows no acute intracranial abnormalities -UDS positive for cannabinoids, benzodiazepines (on xanax at home), and opiates (reports recent URI treated with cough syrup with codeine) -CK and VS within normal limits -Ativan 1mg Q6H PRN for seizure activity -EEG pending -Neurology consulted, all recommendations appreciated -Fall, aspiration and seizure precautions in place 2. Hypokalemia -Potassium 3.3 in ED -Replenished with 20meq PO KDUR -Repeat in AM 3. History of Bipolar Disorder -Continue home seroquel 4. History of Anxiety -Continue home Xanax -Listed on bottle as 1mg TID but patient reports taking 1mg in AM and 2mg HS 5. History of Tobacco Abuse -Nicoderm CQ daily GI Prophylaxis: Protonix DVT Prophylaxis: SCD's Diet: Regular Patient seen and case discussed with attending, Dr. Maty Brewer. Perla PGY1 - Date & Time Date: 04/22/18 Time: 00:44 Decision To Admit - Pt Status Changed To: Hospital Disposition Of: Observation - . Bed Request Type: Telemetry
[2018-04-22] MEDS ORDERED: Pantoprazole 40 mg EC Tab PO SCH (06:00)
[2018-04-22 06:20] VITALS: O2SAT 97
[2018-04-22 07:10] LABS: BASO # 0.02 K/mm3 (0.0-2.0); BASO % 0.3 % (0.0-3.0); EOS # 0.2 (0.0-0.7); EOS % 3.4 % (1.5-5.0); GRAN # 2.65 (1.4-6.5); GRAN % 40.9 % (50.0-68.0); HEMOGLOBIN 13.2 g/dL (14.0-18.0); LYMPH % 45.7 % (22.0-35.0); MEAN CELL VOLUME 84.7 fl (80.0-105.0); MEAN CORPUSCULAR HEMOGLOBIN 27.2 pg (25.0-35.0); MEAN CORPUSCULAR HGB CONC 32.1 g/dl (31.0-37.0); MEAN PLATELET VOLUME 10.2 fl (7.0-11.0); MONO # 0.6 (0.1-0.6); MONO % 9.7 % (1.0-6.0); RBC 4.85 10^6/uL (3.5-6.1); RED CELL DISTRIBUTION WIDTH 14.7 % (11.5-14.5); WHITE BLOOD COUNT 6.5 10^3/ul (4.5-11.0)
[2018-04-22 07:23] LABS: ALB/GLOB RATIO 1.3 (1.1-1.8); ALBUMIN 4.2 g/dL (3.0-4.8); ALT/SGPT 25 U/L (7-56); AST/SGOT 22 U/L (17-59); BLOOD UREA NITROGEN 8 mg/dL (7-21); CALCIUM 9.4 mg/dL (8.4-10.5); GFR AFRICAN-AMERICAN > 60; GFR NON-AFRICAN AMERICAN > 60
--- NOTE | 2018-04-22 09:42 | CARD ---
APPROVED REPORT EKG Measurement Heart [id number] <Conclusion> Normal sinus rhythm ST abnormality, possible digitalis effect Abnormal ECG
[2018-04-22 11:52] VITALS: RESP 18
[2018-04-22 11:53] VITALS: BP 100/66; PULSE 51; TEMP 98
--- NOTE | 2018-04-22 14:30 | CP.PCM.CON ---
History of Present Illness - History of Present Illness History of Present Illness: 32 y old male who had a new onset seizure yesterday am, Past Patient History - Infectious Disease Hx of Infectious Diseases: None - Tetanus Immunizations Tetanus Immunization: Unknown - Past Social History Smoking Status: Light Smoker < 10 Cigarettes Daily - CARDIAC Hx Cardiac Disorders: No Hx Angina: No Hx Cardia Arrhythmia: No Hx Circulatory Problems: No Hx Congestive Heart Failure: No Hx Heart Murmur: No Hx Heart Transplant: No Hx Hypercholesterolemia: No Hx Hypertension: No Hx Internal Defibrillator: No Hx Mitral Valve Prolapse: No Hx Pacemaker: No Hx Peripheral Edema: No Hx Peripheral Vascular Disease: No - PULMONARY Hx Respiratory Disorders: No Hx Asthma: No Hx Bronchitis: No Hx Chronic Obstructive Pulmonary Disease (COPD): No Hx Emphysema: No Hx Pneumonia: No Hx Respiratory Aspiration: No Hx Respiratory Tract Infection: No Hx Sleep Apnea: No Hx Tuberculosis: No - NEUROLOGICAL Hx Seizures: Yes (New onset on admission) - HEENT Hx HEENT Problems: No - RENAL Hx Chronic Kidney Disease: No - ENDOCRINE/METABOLIC Hx Endocrine Disorders: No - HEMATOLOGICAL/ONCOLOGICAL Hx Blood Disorders: No Hx AIDS: No Hx Anemia: No Hx Cancer: No Hx Chemotherapy: No Hx Cirrhosis: No Hx Hepatitis A: No Hx Hepatitis B: No Hx Hepatitis C: No Hx Human Immunodeficiency Virus (HIV): No Hx Metastesis: No Hx Shingles: No Hx Unexplained Bleeding: No - INTEGUMENTARY Hx Dermatological Problems: No Hx Basil Cell: No Hx Eczema: No Hx Melanoma: No Hx Psoriasis: No Hx Squamous Cell: No - MUSCULOSKELETAL/RHEUMATOLOGICAL Hx Musculoskeletal Disorders: No Hx Falls: No - GASTROINTESTINAL Hx Gastrointestinal Disorders: No - GENITOURINARY/GYNECOLOGICAL Hx Genitourinary Disorders: No - PSYCHIATRIC Hx Bipolar Disorder: Yes Hx Depression: Yes Hx Substance Use: Yes - SURGICAL HISTORY Hx Surgeries: No Hx Cardiac Catheterization: No Hx Coronary Stent: No - ANESTHESIA Hx Anesthesia: No Hx Anesthesia Reactions: No Hx Malignant Hyperthermia: No Meds Allergies/Adverse Reactions: Allergies Allergy/AdvReac Type Severity Reaction Status Date / Time No Known Allergies Allergy Verified 04/01/18 20:41 Results - Vital Signs Recent Vital Signs: Last Vital Signs Temp 98 F 04/22/18 11:52 Pulse 51 L 04/22/18 11:52 Resp 18 04/22/18 11:52 BP 100/66 04/22/18 11:52 Pulse Ox 97 04/22/18 09:00 - Labs Result Diagrams: 04/22/18 06:15 04/22/18 06:15 Labs: Laboratory Results - last 24 hr 04/22/18 04/22/18 06:15 06:15 WBC 6.5 D RBC 4.85 Hgb 13.2 L Hct 41.1 L MCV 84.7 MCH 27.2 MCHC 32.1 RDW 14.7 H Plt Count 246 MPV 10.2 Gran % 40.9 L Lymph % (Auto) 45.7 H [place] % (Auto) 9.7 H Eos % (Auto) 3.4 Baso % (Auto) 0.3 Gran # 2.65 Lymph # (Auto) 3.0 [place] # (Auto) 0.6 Eos # (Auto) 0.2 Baso # (Auto) 0.02 Sodium 143 Potassium 3.9 Chloride 106 Carbon Dioxide 27 Anion Gap 14 BUN 8 Creatinine 0.7 L Est GFR ( Amer) > 60 Est GFR (Non-Af Amer) > 60 Random Glucose 103 Calcium 9.4 Phosphorus 4.4 Magnesium 2.3 H Total Bilirubin 0.4 AST 22 ALT 25 Alkaline Phosphatase 74 Total Protein 7.3 Albumin 4.2 Globulin 3.2 Albumin/Globulin Ratio 1.3
--- NOTE | 2018-04-22 14:46 | CP.PCM.DIS ---
Provider - Provider Date of Admission: 04/22/18 00:04 Attending physician: Opal Cochran MD Primary care physician: NO PRIMARY CARE PROVIDER Hospital Course - Lab Results Lab Results: Most Recent Lab Values WBC 6.5 10^3/ul (4.5-11.0) D 04/22/18 06:15 RBC 4.85 10^6/uL (3.5-6.1) 04/22/18 06:15 Hgb 13.2 g/dL (14.0-18.0) L 04/22/18 06:15 Hct 41.1 % (42.0-52.0) L 04/22/18 06:15 MCV 84.7 fl (80.0-105.0) 04/22/18 06:15 MCH 27.2 pg (25.0-35.0) 04/22/18 06:15 MCHC 32.1 g/dl (31.0-37.0) 04/22/18 06:15 RDW 14.7 % (11.5-14.5) H 04/22/18 06:15 Plt Count 246 10^3/uL (120.0-450.0) 04/22/18 06:15 MPV 10.2 fl (7.0-11.0) 04/22/18 06:15 Gran % 40.9 % (50.0-68.0) L 04/22/18 06:15 Lymph % (Auto) 45.7 % (22.0-35.0) H 04/22/18 06:15 [place] % (Auto) 9.7 % (1.0-6.0) H 04/22/18 06:15 Eos % (Auto) 3.4 % (1.5-5.0) 04/22/18 06:15 Baso % (Auto) 0.3 % (0.0-3.0) 04/22/18 06:15 Gran # 2.65 (1.4-6.5) 04/22/18 06:15 Lymph # (Auto) 3.0 (1.2-3.4) 04/22/18 06:15 [place] # (Auto) 0.6 (0.1-0.6) 04/22/18 06:15 Eos # (Auto) 0.2 (0.0-0.7) 04/22/18 06:15 Baso # (Auto) 0.02 K/mm3 (0.0-2.0) 04/22/18 06:15 Sodium 143 mmol/L (132-148) 04/22/18 06:15 Potassium 3.9 mmol/L (3.6-5.0) 04/22/18 06:15 Chloride 106 mmol/L (98-107) 04/22/18 06:15 Carbon Dioxide 27 mmol/L (21-33) 04/22/18 06:15 Anion Gap 14 (10-20) 04/22/18 06:15 BUN 8 mg/dL (7-21) 04/22/18 06:15 Creatinine 0.7 mg/dl (0.8-1.5) L 04/22/18 06:15 Est GFR ( Amer) > 60 04/22/18 06:15 Est GFR (Non-Af Amer) > 60 04/22/18 06:15 Random Glucose 103 mg/dL (70-110) 04/22/18 06:15 Calcium 9.4 mg/dL (8.4-10.5) 04/22/18 06:15 Phosphorus 4.4 mg/dL (2.5-4.5) 04/22/18 06:15 Magnesium 2.3 mg/dL (1.7-2.2) H 04/22/18 06:15 Total Bilirubin 0.4 mg/dL (0.2-1.3) 04/22/18 06:15 AST 22 U/L (17-59) 04/22/18 06:15 ALT 25 U/L (7-56) 04/22/18 06:15 Alkaline Phosphatase 74 U/L (38-126) 04/22/18 06:15 Lactate Dehydrogenase 409 U/L (333-699) 04/21/18 21:40 Total Creatine Kinase 168 U/L (35-230) 04/21/18 21:40 Troponin I < 0.01 ng/mL 04/21/18 21:40 Total Protein 7.3 g/dL (5.8-8.3) 04/22/18 06:15 Albumin 4.2 g/dL (3.0-4.8) 04/22/18 06:15 Globulin 3.2 gm/dL 04/22/18 06:15 Albumin/Globulin Ratio 1.3 (1.1-1.8) 04/22/18 06:15 Urine Opiates Screen Positive (NEGATIVE) H 04/21/18 21:45 Urine Methadone Screen Negative (NEGATIVE) 04/21/18 21:45 Ur Barbiturates Screen Negative (NEGATIVE) 04/21/18 21:45 Ur Phencyclidine Scrn Negative (NEGATIVE) 04/21/18 21:45 Ur Amphetamines Screen Negative (NEGATIVE) 04/21/18 21:45 U Benzodiazepines Scrn Positive (NEGATIVE) 04/21/18 21:45 U Oth Cocaine Metabols Negative (NEGATIVE) 04/21/18 21:45 U Cannabinoids Screen Positive (NEGATIVE) H 04/21/18 21:45 Alcohol, Quantitative < 10 mg/dL (0-10) 04/21/18 21:40 Discharge Exam - Head Exam Head Exam: ATRAUMATIC, NORMOCEPHALIC Discharge Plan - Follow Up Plan Condition: STABLE Disposition: AGAINST MEDICAL ADVICE Referrals: PCP,NO [Primary Care Provider] -
== END 2018-04-22 11:57 | disposition left against medical advice (07) ==
LOC: ED 20:58 → ERH 04-22 00:04 → 2RNO 04-22 01:05
PROVIDERS: ADMIT Internal Medicine; ATTEND Internal Medicine
DX: G40.909 Epilepsy, unspecified, not intractable, without status epilepticus (principal); F31.9 Bipolar disorder, unspecified; F41.9 Anxiety disorder, unspecified; F17.210 Nicotine dependence, cigarettes, uncomplicated; E87.6 Hypokalemia
CPT/HCPCS: 36415; 70450; 80053; 80320; 80324; 80345; 80346; 80349; 80353; 80358; 80361; 82550; 83615; 83735; 83992; 84100; 84484; 85025; 85027; 93005; 99285; G0378

== ENCOUNTER 2018-05-04 00:13 | Emergency (ER) | payer MEDICAID ==
[2018-05-04 00:14] VITALS: BMI 23.7
== END 2018-05-04 00:56 | disposition left against medical advice (07) ==
LOC: ED 00:13
DX: Z02.89 Encounter for other administrative examinations (principal); F19.10 Other psychoactive substance abuse, uncomplicated

== ENCOUNTER 2018-05-04 01:01 | Emergency (ER) | payer MEDICAID ==
[2018-05-04 01:01] VITALS: BMI 23.7
== END 2018-05-04 01:41 | disposition left against medical advice (07) ==
LOC: ED 01:01
DX: Z02.89 Encounter for other administrative examinations (principal); Z00.00 Encounter for general adult medical examination without abnormal findings